=== PATIENT | male | born 1950 | race Caucasian/White ===

== ENCOUNTER 2020-02-29 22:03 | Inpatient (IN) | payer BC, MEDICARE ==
[~2020-02-29] VITALS: Ht 167.6 cm; Wt 73.0 kg
[2020-02-29] MEDS ORDERED: ONDANSETRON HCL/PF 4 MG/2 ML VIAL IVP ONE (22:30)
[2020-02-29] MEDS ORDERED: IV NS 0.9% 500 ML BAG IV ONE (22:30)
[2020-02-29] MEDS ORDERED: MORPHINE SULFATE INJ 2 MG/ML DISP.SYRIN IV ONE (22:30)
[2020-02-29] MEDS ORDERED: MORPHINE SULFATE INJ 4 MG/ML DISP.SYRIN ONE (22:36)
--- NOTE | 2020-02-29 22:44 | NUR ---
PT PRESENTED TO THE ER WITH A C/O ABD PAIN. PT STATED THAT HE HAS HAD THIS SAME PAIN BEFORE AND HAD A SBO AT THE TIME. PT DENIES DIARRHEA AND STATED THAT HIS BOWEL MOVEMENTS ARE ALWAYS IRREGULAR. PT WAS PLACED ON THE MONITOR AND CONTINUOUS PULSE OX.
[2020-02-29 22:45] LABS: BASOPHILS % (AUTO) 0.2 % (0.0-2.0); EOSINOPHILS % (AUTO) 0.8 % (0.0-6.0); HEMATOCRIT 45 % (39-51); HEMOGLOBIN 14.9 g/dL (13.5-17.5); LYMPHOCYTES # (AUTO) 0.7 /CMM (0.8-4.8); LYMPHOCYTES % (AUTO) 7.5 % (20.0-44.0); MEAN CORPUSCULAR HGB CONC 34 g/dl (31.0-36.0); MEAN CORPUSCULAR VOLUME 93 fL (80-96); MONOCYTES # (AUTO) 0.6 /CMM (0.1-1.30); MONOCYTES % (AUTO) 6.3 % (2.0-12.0); NEUTROPHILS # (AUTO) 7.5 /CMM (1.8-8.9); NEUTROPHILS % (AUTO) 85.2 % (43.0-81.0); PLATELET COUNT (AUTO) 192 /CMM (150-450); RED BLOOD CELL COUNT(AUTO) 4.78 MIL/uL (4.5-6.0); WHITE BLOOD COUNT (AUTO) 8.8 K/uL (4.3-11.0)
[2020-02-29 22:52] LABS: CARBON DIOXIDE 30 mmol/L (21-32); CHLORIDE 104 mmol/L (98-107); CREATININE 1.1 mg/dL (0.6-1.3); GLUCOSE 114 mg/dL (74-106); POTASSIUM 3.8 mmol/L (3.5-5.1); SODIUM SERUM 141 mmol/L (136-145); UREA NITROGEN, BLOOD 13 mg/dL (7-18)
[2020-02-29 22:55] LABS: CALCIUM, SERUM 9.6 mg/dL (8.5-10.1)
[2020-02-29 22:57] LABS: ALANINE AMINOTRANSFERASE 17 U/L (12-78); ALBUMIN 4.3 g/dL (3.4-5.0); ALKALINE PHOSPHATASE 69 U/L (46-116); ASPARTATE AMINOTRANSFERASE 16 U/L (15-37); BILIRUBIN,DIRECT 0.2 mg/dL (0.0-0.2); BILIRUBIN,TOTAL 0.9 mg/dL (0.2-1.0); LIPASE 173 U/L (73-393); TOTAL PROTEIN, SERUM 7.1 g/dL (6.4-8.2)
--- NOTE | 2020-02-29 23:02 | NUR ---
PT LEFT FOR CT.
[2020-02-29] MEDS ORDERED: IOHEXOL-300 100 ML VIAL IV ONE (23:05)
[2020-02-29] MEDS ORDERED: IV NS 0.9% 250 ML IV ONE (23:06)
[2020-02-29] MEDS ORDERED: CT SWABBABLE VALVE TRANS SET 1 EA INFUS.SET MC ONE (23:06)
--- NOTE | 2020-02-29 23:20 | NUR ---
PT RETURNED FROM CT.
[2020-02-29 23:52] LABS: APPEARANCE,URINE Clear (CLEAR); BILIRUBIN,URINE Negative (NEGATIVE); BLOOD, URINE Trace-intact Ery/uL (NEGATIVE); COLOR,URINE Yellow (YELLOW); KETONES,URINE Negative (NEGATIVE); LEUKOCYTE ESTERASE ,URINE Negative (NEGATIVE); NITRITE, URINE Negative (NEGATIVE); PH,URINE 6.5 (5.0-8.0); PROTEIN,URINE Negative (NEGATIVE); UGLUCOSE Negative (NEGATIVE); UROBILINOGEN,URINE 0.2 EU/dL (0.2)
--- NOTE | 2020-03-01 00:04 | NUR ---
DR. GORMAN SPEAKING WITH LAUREL PACE, DNP
--- NOTE | 2020-03-01 00:07 | NUR ---
DR. GORMAN SPEAKING WITH DR. MORALES
--- NOTE | 2020-03-01 00:07 | NUR ---
COVID SWAB COLLECTED AND SENT TO LAB
--- NOTE | 2020-03-01 00:24 | NUR ---
PATIENT AMBULATED TO THE RESTROOM WITH STEADY GAIT.
--- NOTE | 2020-03-01 00:31 | NUR ---
BED ASSIGNMENT 201
--- NOTE | 2020-03-01 00:40 | NUR ---
PATIENT REFUSED NG TUBE UNTIL HE RECEIVES PAIN MEDICATION.
[2020-03-01 00:52] LABS: BACTERIA,URINE None seen /HPF (None Seen); SQUAMOUS EPITHELIAL CELL,UR Few /HPF (None Seen); WBC,URINE 0-2 /HPF (0-3)
[2020-03-01] MEDS ORDERED: MORPHINE SULFATE INJ 4 MG/ML DISP.SYRIN ONE (00:56)
[2020-03-01] MEDS ORDERED: MORPHINE SULFATE INJ 4 MG/ML DISP.SYRIN IV PRN (01:00)
--- NOTE | 2020-03-01 01:00 | NUR ---
TRIED CALLING FOR REPORT, STAFF STATES THAT THE NURSE WILL CALL BACK IN 10 MINUTES.
[2020-03-01] MEDS ORDERED: DEXAMETHASONE SOD PHOSPHATE 10 MG/ML VIAL ONE (01:53)
[2020-03-01] MEDS ORDERED: DEXAMETHASONE SOD PHOSPHATE 10 MG/ML VIAL IV ONE (02:00)
--- NOTE | 2020-03-01 02:01 | NUR ---
REPORT GIVEN TO ROSANA MONROE FOR BANDAR.
[2020-03-01 02:20] VITALS: BP 131/86
--- NOTE | 2020-03-01 02:25 | NUR ---
PT WAS TRANSFERRED TO [facility] IN STABLE CONDITION
[2020-03-01 02:30] VITALS: BP 131/86
[2020-03-01] MEDS ORDERED: LORAZEPAM INJ 2 MG/ML VIAL IV PRN (03:00)
[2020-03-01] MEDS ORDERED: Z GUARD REMEDY 2 OZ OINT TP PRN (03:00)
--- NOTE | 2020-03-01 03:20 | NUR ---
ms rn note patient refused NG tube placement. patient stated he already spoke with ER doc about trying anti inflammatory medications before NG Tube insertion. patient already received Decadron 10mg in ER. informed .
[2020-03-01] MEDS: PANTOPRAZOLE 40 MG VIAL IV SCH ×2 (04:17→09:08)
[2020-03-01] MEDS ORDERED: IV PREMIX D5 1/2NS + KCL 1,000 ML IV ONE (04:56)
[2020-03-01] MEDS: MORPHINE SULFATE INJ 2 MG/ML DISP.SYRIN IV PRN ×3 (04:59→21:31)
--- NOTE | 2020-03-01 04:59 | NUR ---
ms rn note administered prn morphine 2mg for pain 04/27 in abdomen. will continue to monitor.
[2020-03-01] MEDS: Potassium Chloride 20 MEQ in IV D5/0.45 NACL 1,000 ML IV PRN ×3 (05:05→22:01)
--- NOTE | 2020-03-01 05:15 | NUR ---
ms rn note did not connect patient to IVF D5 1/2 NS with 20meq of potassium d/t patients potassium is currently 3.8. no NG tube was inserted d/t patient refusal and patient is not vomiting. MD informed. will continue to monitor.
--- NOTE | 2020-03-01 06:07 | NUR ---
ms rn note dvt pumps ordered and applied
--- NOTE | 2020-03-01 06:13 | NUR ---
ms apple turner note received patient via wheel chair. ambulated to bed with steady gait. a/o x4. tolerating room air. respirations are even and unlabored. no s/s sob. pain is 5/10 in lower abdomen at this time. iv access in RAC#18 patent and saline locked. intial physical assessment done. skin assessment completed, pictures taken and placed in chart. airfreight operations agent obtained vitals signs and completed belongings list. patient did not want to change into gown because he was comfortable. bed is low and locked, hob flat, side rials up x2, call light within reach. will continue to monitor. Addendum: 03/01/20 at 0617 by ROSANA BECKHAM RN admission time 219
--- NOTE | 2020-03-01 06:18 | NUR ---
ms rn closing note patient in bed. a/o x4. tolerating room air. respirations are even and unlabored. no sob. pain managed with morphine. iv access remains in RAC#18 patent and saline locked. bed remains low and locked, hob flat, side rials up x2, dvt pumps on. call light within reach. will endorse to next shift.
--- NOTE | 2020-03-01 07:15 | NUR ---
MS RN NOTES PATIENT IN BED ALERT ORIENTED X 4. NO ACUTE DISTRESS NOTED. BREATHING UNLABORED. NO SOB NOTED. IV ACCESS PATENT AND INTACT, NO REDNESS, NO SWELLING NOTED. SAFETY MEASURES IN PLACE. CALL LIGHT WITHIN REACH. WILL CONTINUE TO MONITOR ACCORDINGLY.
--- NOTE | 2020-03-01 07:26 | NUR ---
ms rn note clarified with insurance operations rep MD Dr. Velasquez about IVF D51/2NS with 20MEQ. said ok to give. will hang bag now.
[2020-03-01] MEDS ORDERED: ALFU10TA10 MT (07:51)
[2020-03-01 08:12] VITALS: BP 124/70
[2020-03-01] MEDS ORDERED: TADA5TAB13 MT (08:23)
[2020-03-01] MEDS ORDERED: DIATR MEGLU/DIATRIZOATE SODIUM 120 ML BOTTLE (GASTROGRAPHIN) ONE ×2 (09:49)
[2020-03-01] MEDS: ONDANSETRON HCL/PF 4 MG/2 ML VIAL IVP PRN ×2 (12:09→20:32)
[2020-03-01 17:50] VITALS: BP 120/73
--- NOTE | 2020-03-01 18:59 | NUR ---
MS RN CLOSING NOTES PATIENT IN BED ALERT ORIENTED X 4. NO ACUTE DISTRESS NOTED. BREATHING UNLABORED. NO SOB NOTED. IV ACCESS PATENT AND INTACT, NO REDNESS, NO SWELLING NOTED.NEEDS ATTENDED AND ANTICIPATED. KEPT COMFORTABLE. SAFETY MEASURES IN PLACE. CALL LIGHT WITHIN REACH. TOLERATED CURRENT DIET WELL. WILL ENDORSE TO NIGHT FOR CONTINUITY OF CARE.
--- NOTE | 2020-03-01 19:11 | NUR ---
MS RN: RECEIVED PATIENT Patient is awake, A/O x4. Abdomen feels tender. On clear liquids, reports nausea. IVF infusing. Patient refused NGT placement per MABEL Cai. Fall precaution maintained.
[2020-03-01 20:00] VITALS: BP 143/85
--- NOTE | 2020-03-01 20:36 | NUR ---
MS RN: N/V Episode of emesis x2, feels nauseated. Instructed patient to stop clear liquids as per ordered. PRN Zofran given, will reassess.
--- NOTE | 2020-03-01 21:35 | NUR ---
MS RN: ABDOMINAL PAIN C/o abdominal pain, vomiting improved, still feels nauseous. Refused NGT insertion early this morning despite education, now agreed to place in. PRN Morphine given, will reassess.
--- NOTE | 2020-03-01 23:14 | NUR ---
MS RN: NPO Not tolerating clear liquids, notified Dr. Moe Velasquez. Place patient back to NPO as per ordered. SBFT with oral contrast in process.
--- NOTE | 2020-03-02 06:45 | NUR ---
MS RN: END OF SHIFT REPORT Patient in bed, slept well. N/V improved with PRN Zofran. After patient agreed on NGT placement, SBFT in process. NGT to intermittent suction not inserted d/t patient received oral contrast for Small bowel series last night. Notified Dr. Moe Velasquez, place patient back to NPO, not tolerating Clear liquids. IVF infusing. Abdominal pain managed with PRN Morphine with relief. Small bowel series pending result. Plan for f/u with GI Dr. Westbrook after SB series resulted. Fall precaution maintained. Will endorse to oncoming RN.
--- NOTE | 2020-03-02 07:15 | NUR ---
MS RN NOTES PATIENT IN BED ALERT ORIENTED X 4. NO ACUTE DISTRESS NOTED. BREATHING UNLABORED. NO SOB NOTED. DENIED PAIN AT THIS TIME. IV ACCESS PATENT AND INTACT, NO REDNESS, NO SWELLING NOTED. SAFETY MEASURES IN PLACE. CALL LIGHT WITHIN REACH. WILL CONTINUE TO MONITOR ACCORDINGLY.
[2020-03-02 08:00] VITALS: BP 123/72
[2020-03-02 08:14] LABS: BASOPHILS % (AUTO) 0.1 % (0.0-2.0); EOSINOPHILS % (AUTO) 0.2 % (0.0-6.0); HEMATOCRIT 39 % (39-51); HEMOGLOBIN 12.9 g/dL (13.5-17.5); LYMPHOCYTES % (AUTO) 9.3 % (20.0-44.0); MEAN CORPUSCULAR HGB CONC 34 g/dl (31.0-36.0); MEAN CORPUSCULAR VOLUME 93 fL (80-96); MONOCYTES % (AUTO) 8.8 % (2.0-12.0); NEUTROPHILS # (AUTO) 9.2 /CMM (1.8-8.9); NEUTROPHILS % (AUTO) 81.6 % (43.0-81.0); PLATELET COUNT (AUTO) 169 /CMM (150-450); RED BLOOD CELL COUNT(AUTO) 4.16 MIL/uL (4.5-6.0); WHITE BLOOD COUNT (AUTO) 11.3 K/uL (4.3-11.0)
[2020-03-02 09:01] LABS: THYROID STIMULATING HORMONE 0.38 uIU/mL (0.358-3.74)
[2020-03-02 09:13] LABS: CALCIUM, SERUM 8.2 mg/dL (8.5-10.1); MAGNESIUM 2.8 mg/dL (1.8-2.4); PHOSPHORUS 2.5 mg/dL (2.5-4.9); POTASSIUM 4.1 mmol/L (3.5-5.1)
[2020-03-02] MEDS: PANTOPRAZOLE 40 MG VIAL IV SCH (09:19)
[2020-03-02] MEDS: Potassium Chloride 20 MEQ in IV D5/0.45 NACL 1,000 ML IV PRN ×2 (10:11→22:01)
--- NOTE | 2020-03-02 15:10 | NUR ---
MS RN NOTES SEEN AND EVALUATED BY DR CAROL NGUYEN, NGT PLACED ON LEFT NARES BY DR CAROL NGUYEN , PATIENT TOLERATED WELL.
--- NOTE | 2020-03-02 16:15 | NUR ---
MS RN NOTES CHEST XRAY RESULTED FOR S/P NGT PLACEMENT , RESULT RECOMMENDED BY APPROXIMATELY 5 cm, RELAYED TO DR CAROL NGUYEN WITH ORDER TO ADVANCE BY 5 CM, NOTED AND CARRIED OUT. PLACEMENT VERIFIED IN PLACE.
[2020-03-02] MEDS: MORPHINE SULFATE INJ 2 MG/ML DISP.SYRIN IV PRN ×2 (16:40→22:01)
[2020-03-02 16:43] VITALS: BP 146/80
--- NOTE | 2020-03-02 19:00 | NUR ---
MS RN CLOSING NOTES PATIENT IN BED ALERT ORIENTED X 4. NO ACUTE DISTRESS NOTED. BREATHING UNLABORED. NO SOB NOTED. DENIED PAIN AT THIS PAIN. IV ACCESS PATENT AND INTACT, NO REDNESS, NO SWELLING NOTED. NGT SUCTION ON LOW CONTINUOS WITH 110ML PALE YELLOW TO CLEAR OUTPUT. NEEDS ATTENDED AND ANTICIPATED. KEPT COMFORTABLE. SAFETY MEASURES IN PLACE. CALL LIGHT WITHIN REACH. TOLERATED CURRENT DIET WELL. WILL ENDORSE TO NIGHT FOR CONTINUITY OF CARE.
--- NOTE | 2020-03-02 19:30 | NUR ---
MS RN RECEIVE PT IN BED AWAKE WATCHING TV A/O X 3 L NARES CONNECTED TO LOW CONTINUOS SUCTION. IN STABLE, NO S/S OF DISTRESS, SAFETY MEASURES AT ALL TIMES. WILL CONT TO MONITOR
[2020-03-02 20:00] VITALS: BP 155/99
[2020-03-02 20:09] VITALS: BP 155/99
--- NOTE | 2020-03-02 23:13 | NUR ---
MS RN CALL LIGHT ON, WENT TO PT'S ROOM, NOTED NG-TUBE FEEDING ACCIDENTALLY PULLED OUT BY PT. PT SHOWED ME THE NG TUBE ASSESS PT NO S/S OF BLEEDING TIP OF THE NG TUBE INTACT. ASKED PT WHAT HAPPEN PT VERBALIZED "I JUST WALKED TO THE BATHROOM AND I THINK I PULL IT OUT". OFFERED PT TO REINSERT NEW NGT TUBE PT REFUSED AT THIS TIME DESPITE EXPLAINING RISKS AND BENEFITS OFFERED 3 TIMES PT REFUSED TO RE INSERT NGT TUBE. PT VERBALIZED "I WILL SEE AGAIN LATER". ASSESS ABDOMEN NON DISTENDED AT THIS TIME.
--- NOTE | 2020-03-03 05:45 | NUR ---
MS RN PT SLEPT WELL, MONITORED FOR PAIN. NEEDS ATTENDED AND ANTICIPATED, KEPT CLEAN, DRY AND COMFORTABLE, NURSING CARE RENDERED, AWAITING GI CONSULT DR. BROWN, NO C/O PAIN OF ABDOMINAL PAIN AT THIS TIME. PT ABDOMEN SOFT AND NON TENDER AT THIS TIME. PT STILL REFUSING NGT TUBE INSERTION DESPITE EXPLAINING RISKS AND BENEFITS. SAFETY MEASURES AT ALL TIMES. WILL ENDORSE
--- NOTE | 2020-03-03 07:18 | NUR ---
MS RN NOTES PATIENT IN BED ALERT ORIENTED X 4. NO ACUTE DISTRESS NOTED. BREATHING UNLABORED. NO SOB NOTED. DENIED PAIN AT THIS TIME. IV ACCESS PATENT AND INTACT, NO REDNESS, NO SWELLING NOTED. SAFETY MEASURES IN PLACE. CALL LIGHT WITHIN REACH. WILL CONTINUE TO MONITOR ACCORDINGLY. PATIENT REFUSING NGT REINSERTION DESPITE OF EXPLANATION OF RISKS AND BENEFITS.
[2020-03-03 08:00] VITALS: BP 141/91
[2020-03-03 08:18] LABS: BASOPHILS % (AUTO) 0.4 % (0.0-2.0); EOSINOPHILS % (AUTO) 1.2 % (0.0-6.0); HEMATOCRIT 44 % (39-51); HEMOGLOBIN 14.5 g/dL (13.5-17.5); LYMPHOCYTES # (AUTO) 1.2 /CMM (0.8-4.8); MEAN CORPUSCULAR HGB CONC 33 g/dl (31.0-36.0); MEAN CORPUSCULAR VOLUME 93 fL (80-96); MONOCYTES # (AUTO) 0.8 /CMM (0.1-1.30); NEUTROPHILS % (AUTO) 70.4 % (43.0-81.0); PLATELET COUNT (AUTO) 184 /CMM (150-450); RED BLOOD CELL COUNT(AUTO) 4.71 MIL/uL (4.5-6.0); WHITE BLOOD COUNT (AUTO) 7.1 K/uL (4.3-11.0)
[2020-03-03 08:34] LABS: CALCIUM, SERUM 8.6 mg/dL (8.5-10.1); CREATININE 0.9 mg/dL (0.6-1.3); POTASSIUM 3.8 mmol/L (3.5-5.1)
[2020-03-03] MEDS: PANTOPRAZOLE 40 MG VIAL IV SCH (08:45)
[2020-03-03] MEDS: Potassium Chloride 20 MEQ in IV D5/0.45 NACL 1,000 ML IV PRN (10:36)
[2020-03-03 16:00] VITALS: BP 136/83
[2020-03-03] MEDS ORDERED: DEXAMETHASONE SOD PHOSPHATE 4 MG/ML VIAL IV ONE (16:00)
--- NOTE | 2020-03-03 16:16 | NUR ---
MS RN NOTES SEEN AND EVALUATED BY DEBORAH CHEW WITH NEW ORDERS MADE, NOTED AND CARRIED OUT.
--- NOTE | 2020-03-03 16:20 | NUR ---
MS RN NOTES PATIENT TOLERATING CURRENT DIET WELL, NO NAUSEA , NO VOMITING NOTED.DENIED ANY PAIN. CLARIFIED WITH DEBORAH CHEW IF NEED TO ADVANCE DIET BEFORE GOING HOME TO FULL DIET , DEBORAH FORDE SAID PATIENT OK FOR DISCHARGE NOW WITH CURRENT DIET. .
--- NOTE | 2020-03-03 17:40 | NUR ---
MS MANUAL WINDER NOTES PATIENT DISCHARGE HOME WITH STABLE VITAL SIGNS . NO ACUTE DISTRESS NOTED. BREATHING UNLABORED. NO SOB NOTED. DISCHARGE INSTRUCTIONS GIVEN TO THE PATIENT INCLUDING FOLLOW UP WITH PRIMARY DOCTOR AND GI DOCTOR, VERBALIZED UNDERSTANDING . ALL BELONGINGS ACCOUNTED FOR . NEEDS ATTENDED AND ANTICIPATED. IV ACCESS REMOVED, NO REDNESS, NO SWELLING , NO BLEEDING NOTED. DENIED ANY PAIN AT THIS TIME. PATIENT ASSISTED TO THE LOBBY , PICKED UP VIA PRIVATE CAR ACCOMPANIED BY IN STABLE CONDITION.
--- NOTE | 2020-03-03 17:40 | NUR ---
MS GLASS ENAMEL MIXER NOTES PATIENT DISCHARGE HOME WITH STABLE VITAL SIGNS . NO ACUTE DISTRESS NOTED. BREATHING UNLABORED. NO SOB NOTED. DISCHARGE INSTRUCTIONS GIVEN TO THE PATIENT INCLUDING FOLLOW UP WITH PRIMARY DOCTOR, POUNCER AND NEW PRESCRIPTIONS, VERBALIZED UNDERSTANDING . ALL BELONGINGS ACCOUNTED FOR . NEEDS ATTENDED AND ANTICIPATED. IV ACCESS REMOVED, NO REDNESS, NO SWELLING , NO BLEEDING NOTED. DENIED ANY PAIN AT THIS TIME. PATIENT ASSISTED TO THE LOBBY , PICKED UP VIA PRIVATE CAR ACCOMPANIED BY IN STABLE CONDITION. Addendum: 03/03/20 at 5 by MATEO TURPIN RN DISREGARD ABOVE NOTE WRONG PATIENT.
== END 2020-03-03 17:40 | disposition home or self-care (01) | DRG 389 ==
LOC: ER 22:09 → MEDSG2 03-01 00:48
PROVIDERS: ADMIT Hospitalist; ATTEND Hospitalist
DX: K56.600 Partial intestinal obstruction, unspecified as to cause (principal); K50.90 Crohn's disease, unspecified, without complications; Z87.891 Personal history of nicotine dependence; N40.0 Benign prostatic hyperplasia without lower urinary tract symptoms; D63.8 Anemia in other chronic diseases classified elsewhere; R79.89 Other specified abnormal findings of blood chemistry; I34.0 Nonrheumatic mitral (valve) insufficiency
CPT/HCPCS: 36415; 71045-TC; 74250-TC; 80048-TC; 80061-TC; 80076-TC; 81000-TC; 83690-TC; 83735-TC; 84100-TC; 84443-TC; 84484-TC; 85025-TC; 87081-TC; 93307-TC; C9113; G0378; J1100; J2270; J2405; J3480; J3490; J7040; J7050; Q9963; Q9967